=== PATIENT | female | born 1980 | race Caucasian/White ===

== ENCOUNTER → 2016-11-05 | Outpatient (CLI) | payer MEDICARE, OTHER ==
--- NOTE | 2016-11-05 18:14 | MR ---
EXAMINATION TYPE: MR cervical spine wo con DATE OF EXAM: 11/05/2016 5:56 PM COMPARISON: 02/14/2015 HISTORY: Neck pain, hx of trauma TECHNIQUE: Multiplanar, multisequence images of the cervical spine were acquired. C2-C3: No evidence for degenerative disc disease. No disc bulge/herniation or protrusion. No Canal stenosis. Foramina are patent bilaterally. C3-C4: No evidence for degenerative disc disease. No disc bulge/herniation or protrusion. No Canal stenosis. Foramina are patent bilaterally. C4-C5: No evidence for degenerative disc disease. No disc bulge/herniation or protrusion. No Canal stenosis. Foramina are patent bilaterally. C5-C6: Degenerative disc disease with a large left paracentral disc herniation resulting in mild ante rior compression of the spinal cord. There may be very mild progression relative to the previous exam with moderate left-sided foraminal encroachment. Uncovertebral joint hypertrophy seen bilaterally wi th mild right foraminal encroachment. C6-C7: No evidence for degenerative disc disease. No disc bulge/herniation or protrusion. No Canal stenosis. Foramina are patent bilaterally. C7-T1: No evidence for degenerative disc disease. No disc bulge/herniation or protrusion. No Canal stenosis. Foramina are patent bilaterally. Cervical segments are intact. There is loss of the normal cervical lordosis. There is normal alignmen t. Cervical spinal cord is of normal signal. Craniovertebral junction relationships are within norm al limits. IMPRESSION: C5-C6: Degenerative disc disease with a large left paracentral disc herniation resulting in mild ante rior compression of the spinal cord. There may be very mild progression relative to the previous exam with moderate left-sided foraminal encroachment.
== END | disposition home or self-care (01) ==
LOC: RADMRIMAIN 17:03
PROVIDERS: ATTEND Nurse Practitioner Acute Care
DX: M50.022 Cervical disc disorder at C5-C6 level with myelopathy (principal); M50.222 Other cervical disc displacement at C5-C6 level; M50.322 Other cervical disc degeneration at C5-C6 level; Z88.2 Allergy status to sulfonamides
CPT/HCPCS: 72141

== ENCOUNTER → 2016-11-06 | Outpatient (CLI) | payer MEDICARE, OTHER ==
--- NOTE | 2016-11-07 09:38 | MR ---
MR thoracic spine HISTORY: Thoracic spine pain Multiplanar multisequence imaging obtained through the thoracic spine No comparisons Thoracic vertebral bodies show preserved height, alignment, and bone marrow signal. Thoracic cord sig nal is maintained. No significant central canal stenosis or foraminal encroachment. There is a slight spinal curvature. T7-8 shows a right posterior paracentral spur possibly contacting the thoracic cord. T6-7 shows a left posterior paracentral disc bulge causing anterolateral mass effect on the thecal sa c. There is no significant spinal stenosis, foraminal encroachment, and there is multilevel mild facet a rthropathy especially at the lower thoracic spine. IMPRESSION: Degenerative disc disease and facet arthropathy as described. Additional findings above
== END ==
LOC: RADMRIMAIN 17:23
PROVIDERS: ATTEND Nurse Practitioner Acute Care
DX: M51.34 Other intervertebral disc degeneration, thoracic region (principal); M46.84 Other specified inflammatory spondylopathies, thoracic region; I63.9 Cerebral infarction, unspecified; M54.2 Cervicalgia; M54.5 Low back pain
CPT/HCPCS: 72146

== ENCOUNTER → 2016-11-07 | Outpatient (CLI) | payer MEDICARE, OTHER ==
--- NOTE | 2016-11-07 21:16 | MR ---
EXAMINATION TYPE: MR lumbar spine wo con DATE OF EXAM: 11/07/2016 5:57 PM COMPARISON: NONE HISTORY: Patient having low back pain TECHNIQUE: Multiplanar, multisequence imaging of the lumbar spine is performed without IV contrast. FINDINGS: Sagittal images of the lumbar spine show vertebral body heights and alignment to appear sat isfactory. The intervertebral discs demonstrate normal heights and hydration. No significant posterio r disc herniations are seen on sagittal images. The conus medullaris is normal in position and signa l ending at mid L1 vertebral body level. The bone marrow signal intensity is within normal limits. N o significant spurring is seen. Axial images show the T12-L1, L1-L2, and L2-L3 levels all to appear within normal limits. Axial images at the L3-L4 through the L5-S1 levels show mild facet degenerative changes bilaterally. Spinal canal is preserved and bilateral neural foramina are patent. - IMPRESSION: Some multilevel mild facet arthropathy in the mid to lower lumbar spine otherwise unremar kable study.
== END | disposition home or self-care (01) ==
LOC: RADMRIMAIN 17:20
PROVIDERS: ATTEND Nurse Practitioner Acute Care
DX: M46.96 Unspecified inflammatory spondylopathy, lumbar region (principal)
CPT/HCPCS: 72148

== ENCOUNTER → 2016-11-15 | Outpatient (CLI) | payer MEDICARE, OTHER ==
--- NOTE | 2016-11-15 21:21 | MR ---
EXAMINATION TYPE: MR brain wo con DATE OF EXAM: 11/15/2016 8:33 PM COMPARISON: 11/23/2015 HISTORY: Dizziness, hx stroke 2 years ago T1-weighted sagittal, T2, FLAIR, and diffusion axial, and T2 coronal coronal views of the brain are s ubmitted. There is no evidence of acute ischemia. The ventricles, basal cisterns, and sulci overlying the conv exities are consistent with the patient's age. There is no mass effect. Persistent abnormal increased T2 signal involving the left occipital lobe, left parietal and left fro ntal lobes. Compensatory enlargement of the left lateral ventricle. No subdural collections. Craniocervical junction maintained. Sella turcica has a normal appearance. No cerebellopontine angle mass. IMPRESSION: 1. No acute intracranial process. 2. Evidence of multiple areas of remote ischemic infarction.
== END | disposition home or self-care (01) ==
LOC: RADMRIMAIN 19:52
PROVIDERS: ATTEND Nurse Practitioner Acute Care
DX: I63.9 Cerebral infarction, unspecified (principal); M54.2 Cervicalgia; M54.5 Low back pain; M54.6 Pain in thoracic spine
CPT/HCPCS: 70551

== ENCOUNTER 2020-04-22 14:41 | Emergency (ER) | payer MEDICARE, OTHER ==
[2020-04-22 14:48] VITALS: RESP 18; TEMP 98
[2020-04-22] MEDS ORDERED: SODIUM CHLORIDE 0.9% 500 ML 500 ML IV STA (15:22)
[2020-04-22 15:33] LABS: Basophils # (A) 0.1 k/uL (0-0.2); Basophils % (A) 1 %; Eosinophils # (A) 0.8 k/uL (0-0.7); Eosinophils % (A) 9 %; HCT 43.6 % (34.0-46.0); Lymphocytes # (A) 1.2 k/uL (1.0-4.8); Lymphocytes % (A) 14 %; MCH 27.4 pg (25.0-35.0); MCHC 32.1 g/dL (31.0-37.0); MCV 85.4 fL (80.0-100.0); Mean Platelet Volume 7.8; Monocytes # (A) 0.3 k/uL (0-1.0); Monocytes % (A) 3 %; Neutrophils # (A) 5.7 k/uL (1.3-7.7); Neutrophils % (A) 70 %; Platelet Count 257 k/uL (150-450); RBC 5.11 m/uL (3.80-5.40); RDW 14.7 % (11.5-15.5); WBC 8.2 k/uL (3.8-10.6)
[2020-04-22 15:41] LABS: Partial Thromboplastin Time 22.3 sec (22.0-30.0); Prothrombin Time 10.6 sec (9.0-12.0)
[2020-04-22 15:46] LABS: ALT 15 U/L (4-34); AST 14 U/L (14-36); African American GFR (CKD) >90 (>60 ml/min/1.73 sqM); Albumin 3.6 g/dL (3.5-5.0); Alkaline Phosphatase 82 U/L (38-126); Anion Gap 4 mmol/L; Blood Urea Nitrogen 9 mg/dL (7-17); Calcium 9.1 mg/dL (8.4-10.2); Carbon Dioxide 23 mmol/L (22-30); Chloride 105 mmol/L (98-107); Creatine Kinase 36 U/L (30-135); Glucose 100 mg/dL (74-99); Non-African American GFR(CKD) >90 (>60 ml/min/1.73 sqM); Potassium 4.2 mmol/L (3.5-5.1); Sodium 132 mmol/L (137-145); Total Bilirubin 0.5 mg/dL (0.2-1.3); Total Protein 5.9 g/dL (6.3-8.2)
--- NOTE | 2020-04-22 15:51 | CT ---
EXAMINATION TYPE: CT brain wo con DATE OF EXAM: 04/22/2020 COMPARISON: 08/22/2014 HISTORY: Left arm numbness, AMS CT DLP: 1102.8 mGycm Automated exposure control for dose reduction was used. There is large area of hypodensity involving the left cerebral hemisphere in the left parietal and le ft posterior frontal and left temporal lobes. There is no mass effect nor midline shift. There is david e enlargement of the left lateral ventricle. There is no evidence of intracranial hemorrhage. Cerebel lum is intact. IMPRESSION: Old large left hemisphere infarct in the middle cerebral artery distribution not changed compared to old CT scan. No acute intracranial abnormality.
--- NOTE | 2020-04-22 16:03 | CT ---
EXAMINATION TYPE: CT angio head neck DATE OF EXAM: 04/22/2020 COMPARISON: None HISTORY: Left arm numbness, AMS CT DLP: 614.1 mGycm Automated exposure control for dose reduction was used. CONTRAST: Performed with IV Contrast, patient injected with 65 mL of Isovue 370. There are 3-D post processed images. There is normal branching pattern of the great vessels on the aortic arch. There is bilateral arteria l flow in the subclavian arteries. There is arterial flow in the common internal and external carotid arteries bilaterally. There is wide patency of the carotid artery bifurcations. There is bilateral a rterial flow in the vertebral arteries. There is arterial flow in the vertebrobasilar artery system. There is arterial flow in the anterior middle and posterior cerebral arteries bilaterally. I see no e vidence of intracranial aneurysm or neovascularity. There is no mass effect. There is normal contrast opacification of the venous sinuses. I see no evidence of intracranial arterial hemodynamic stenosis . There is evidence of old large left hemisphere infarct in the left middle cerebral artery distribut ion. No significant angiographic abnormality seen in this area. IMPRESSION: Negative CT angiogram of the neck. Negative CT angiogram of the brain.
--- NOTE | 2020-04-22 16:06 | ED ---
Neuro HPI - General Chief Complaint: Neuro Symptoms/Deficit Stated Complaint: poss stroke Source: patient Mode of arrival: ambulatory Limitations: no limitations - History of Present Illness Is the patient presenting with stroke symptoms?: Yes Last Known Well Date: 04/21/20 Initial Comments: Patient is a 39-year-old female with past history of asthma, hemorrhagic CVA, multiple TIA, diabetes who presents emergency room with reported left-sided weakness. 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 Reports that she regained the strength in her extremities and had significant improvement in her speech however continues to have a level of expressive aphasia. Daughter is at bedside and provides the history. Reports that yesterday afternoon the patient began having worsening weakness and numbness in her left upper extremity which was always her stronger side. Also reports that she seems a little bit more confused. She went into [facility] this morning for the symptoms and was told that she had low potassium levels. They gave her potassium and she was discharged. Patient is concerned that she is having a TIA and therefore came into our emergency department. Denies any headaches or visual changes. No fevers or chills. Also admits to tingling in her left lower extremity. No recent head trauma. Patient takes an aspirin daily. No other alleviating, precipitating or modifying factors - Related Data Home Medications: Home Medications Medication Instructions Recorded Confirmed Nicotine 14Mg/24Hr Patch [Habitrol] 1 patch TRANSDERM DAILY 01/03/16 01/04/16 ALPRAZolam 0.25 mg PO TID PRN 01/04/16 01/04/16 Dextroamphetamine/Amphetamine 5 mg PO BID 01/04/16 01/04/16 [Adderall] Hydrocodone/Acetaminophen [[place] 1 tab PO TID 01/04/16 01/04/16 10-325] QUEtiapine [SEROquel] 50 mg PO AC-SUPPER 01/04/16 01/04/16 Previous Rx's Medication Instructions Recorded QUEtiapine [SEROquel] 300 mg PO HS #60 tab 02/16/14 Aspirin EC [Ecotrin] 325 mg PO DAILY #30 tablet. 08/26/14 Atorvastatin [Lipitor] 20 mg PO HS #30 tab 01/08/16 HYDROcodone/APAP 10-325MG [[place] 1 each PO Q8H PRN #30 tab 01/08/16 10-325] Loratadine [Claritin] 10 mg PO DAILY #30 tab 01/08/16 QUEtiapine XR [SEROquel XR] 150 mg PO DAILY@1700 #30 tab.er.24h 01/08/16 Topiramate [Topamax] 75 mg PO HS #90 tab 01/08/16 lamoTRIgine [LaMICtal] 100 mg PO DAILY #30 tab 01/08/16 lamoTRIgine [LaMICtal] 200 mg PO HS #30 tab 01/08/16 traZODone HCL [Desyrel] 50 mg PO HS #30 tab 01/08/16 Allergies/Adverse Reactions: Allergies Allergy/AdvReac Type Severity Reaction Status Date / Time oxycodone HCl [From Percocet] Allergy Itching Verified 04/22/20 14:43 Sulfa (Sulfonamide Allergy Itching Verified 04/22/20 14:43 Antibiotics) Review of Systems ROS Statement: Those systems with pertinent positive or pertinent negative responses have been documented in the HPI. ROS Other: All systems not noted in ROS Statement are negative. General Exam Limitations: no limitations General appearance: alert, in no apparent distress Head exam: Present: atraumatic, normocephalic, normal inspection Eye exam: Present: normal appearance, PERRL, EOMI. Absent: scleral icterus, conjunctival injection, periorbital swelling ENT exam: Present: normal exam, mucous membranes moist Neck exam: Present: normal inspection. Absent: tenderness, meningismus, lymphadenopathy Respiratory exam: Present: normal lung sounds bilaterally. Absent: respiratory distress, wheezes, rales, rhonchi, stridor Cardiovascular Exam: Present: regular rate, normal rhythm, normal heart sounds. Absent: systolic murmur, diastolic murmur, rubs, gallop, clicks GI/Abdominal exam: Present: soft, normal bowel sounds. 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 Patient is able to hold her hands above her head without difficulty. Lifts arms appropriately for blood pressure cuff. ). Absent: tenderness, pedal edema, joint swelling, calf tenderness Back exam: Present: normal inspection Neurological exam: Present: alert, oriented X3, CN II-XII intact Psychiatric exam: Present: anxious Skin exam: Present: warm, dry, intact, normal color. Absent: rash Stroke MDM - Lab Data Result diagrams: 04/22/20 15:25 04/22/20 14:54 Lab Results 04/22/20 04/22/20 04/22/20 Range/Units 14:54 14:54 15:25 WBC 8.2 (3.8-10.6) k/uL RBC 5.11 (3.80-5.40) m/uL Hgb 14.0 (11.4-16.0) gm/dL Hct 43.6 (34.0-46.0) % MCV 85.4 (80.0-100.0) fL MCH 27.4 (25.0-35.0) pg MCHC 32.1 (31.0-37.0) g/dL RDW 14.7 (11.5-15.5) % Plt Count 257 (150-450) k/uL Neutrophils % 70 % Lymphocytes % 14 % Monocytes % 3 % Eosinophils % 9 % Basophils % 1 % Neutrophils # 5.7 (1.3-7.7) k/uL Lymphocytes # 1.2 (1.0-4.8) k/uL Monocytes # 0.3 (0-1.0) k/uL Eosinophils # 0.8 H (0-0.7) k/uL Basophils # 0.1 (0-0.2) k/uL PT (9.0-12.0) sec INR (<1.2) APTT (22.0-30.0) sec Sodium 132 L (137-145) mmol/L Potassium 4.2 (3.5-5.1) mmol/L Chloride 105 (98-107) mmol/L Carbon Dioxide 23 (22-30) mmol/L Anion Gap 4 mmol/L BUN 9 (7-17) mg/dL Creatinine 0.78 (0.52-1.04) mg/dL Est GFR (CKD-EPI)AfAm >90 (>60 ml/min/1.73 sqM) Est GFR (CKD-EPI)NonAf >90 (>60 ml/min/1.73 sqM) Glucose 100 H (74-99) mg/dL Calcium 9.1 (8.4-10.2) mg/dL Total Bilirubin 0.5 (0.2-1.3) mg/dL AST 14 (14-36) U/L ALT 15 (4-34) U/L Alkaline Phosphatase 82 (38-126) U/L Creatine Kinase 36 (30-135) U/L Troponin I <0.012 (0.000-0.034) ng/mL Total Protein 5.9 L (6.3-8.2) g/dL Albumin 3.6 (3.5-5.0) g/dL Urine Color Urine Appearance (Clear) Urine pH (5.0-8.0) Ur Specific Oneco (1.001-1.035) Urine Protein (Negative) Urine Glucose (UA) (Negative) Urine Ketones (Negative) Urine Blood (Negative) Urine Nitrite (Negative) Urine Bilirubin (Negative) Urine Urobilinogen (<2.0) mg/dL Ur Leukocyte Esterase (Negative) Urine HCG, Qual (Not Detectd) Urine Opiates Screen (NotDetected) Ur Oxycodone Screen (NotDetected) Urine Methadone Screen (NotDetected) Ur Propoxyphene Screen (NotDetected) Ur Barbiturates Screen (NotDetected) U Tricyclic Antidepress (NotDetected) Ur Phencyclidine Scrn (NotDetected) Ur Amphetamines Screen (NotDetected) U Methamphetamines Scrn (NotDetected) U Benzodiazepines Scrn (NotDetected) Urine Cocaine Screen (NotDetected) U Marijuana (THC) Screen (NotDetected) 04/22/20 04/22/20 04/22/20 Range/Units 15:25 15:25 15:25 WBC (3.8-10.6) k/uL RBC (3.80-5.40) m/uL Hgb (11.4-16.0) gm/dL Hct (34.0-46.0) % MCV (80.0-100.0) fL MCH (25.0-35.0) pg MCHC (31.0-37.0) g/dL RDW (11.5-15.5) % Plt Count (150-450) k/uL Neutrophils % % Lymphocytes % % Monocytes % % Eosinophils % % Basophils % % Neutrophils # (1.3-7.7) k/uL Lymphocytes # (1.0-4.8) k/uL Monocytes # (0-1.0) k/uL Eosinophils # (0-0.7) k/uL Basophils # (0-0.2) k/uL PT 10.6 (9.0-12.0) sec INR 1.0 (<1.2) APTT 22.3 (22.0-30.0) sec Sodium (137-145) mmol/L Potassium (3.5-5.1) mmol/L Chloride (98-107) mmol/L Carbon Dioxide (22-30) mmol/L Anion Gap mmol/L BUN (7-17) mg/dL Creatinine (0.52-1.04) mg/dL Est GFR (CKD-EPI)AfAm (>60 ml/min/1.73 sqM) Est GFR (CKD-EPI)NonAf (>60 ml/min/1.73 sqM) Glucose (74-99) mg/dL Calcium (8.4-10.2) mg/dL Total Bilirubin (0.2-1.3) mg/dL AST (14-36) U/L ALT (4-34) U/L Alkaline Phosphatase (38-126) U/L Creatine Kinase (30-135) U/L Troponin I (0.000-0.034) ng/mL Total Protein (6.3-8.2) g/dL Albumin (3.5-5.0) g/dL Urine Color Yellow Urine Appearance Clear (Clear) Urine pH 5.5 (5.0-8.0) Ur Specific Oneco 1.045 H (1.001-1.035) Urine Protein Negative (Negative) Urine Glucose (UA) Negative (Negative) Urine Ketones Negative (Negative) Urine Blood Negative (Negative) Urine Nitrite Negative (Negative) Urine Bilirubin Negative (Negative) Urine Urobilinogen <2.0 (<2.0) mg/dL Ur Leukocyte Esterase Negative (Negative) Urine HCG, Qual Not Detected (Not Detectd) Urine Opiates Screen Detected H (NotDetected) Ur Oxycodone Screen Not Detected (NotDetected) Urine Methadone Screen Not Detected (NotDetected) Ur Propoxyphene Screen Not Detected (NotDetected) Ur Barbiturates Screen Not Detected (NotDetected) U Tricyclic Antidepress Not Detected (NotDetected) Ur Phencyclidine Scrn Not Detected (NotDetected) Ur Amphetamines Screen Detected H (NotDetected) U Methamphetamines Scrn Detected H (NotDetected) U Benzodiazepines Scrn Not Detected (NotDetected) Urine Cocaine Screen Not Detected (NotDetected) U Marijuana (THC) Screen Detected H (NotDetected) - Medical Decision Making Upon arrival the patient is placed into room 8. Patient is greater than 24 hours from onset of symptoms. NIH stroke scale is performed and is 0. Laboratory studies were conducted. The patient did go for CT of her head as well as CT angiography. Laboratory studies are remarkable for a sodium of 132. Urine drug screen is positive for opiates, amphetamines, methamphetamines and THC. CT of the patient's brain demonstrates old large left hemisphere infarct in the middle cerebral artery distribution which is unchanged. Angiography of the brain demonstrates a negative CT angiogram of the head and neck. Chest x- ray demonstrates no active cardio pulmonary disease. I discussed diagnosis, differential treatment options. As the patient does report to weakness/tingling in her left extremity with previous history of CVA I did recommend observation with evaluation by a neurologist. No neurologist is available on staff at her facility and therefore the patient will be transferred to a facility of her choosing. Patient does choose [facility]. Discussed case with Dr. De La Paz who accepted transfer. Patient will be transferred in stable condition 04/22/20 16:12 EKG demonstrates a sinus tachycardia with a ventricular rate of 101. GA interval 132. QRS 86. QTC of 474. No acute ST segment elevations or depressions concerning for ischemic changes. Past Medical History Past Medical History: Asthma, CVA/TIA, Diabetes Mellitus Additional Past Medical History / Comment(s): CHRONIC PAIN NECK AND BACK, hypoglycemia, borderline DM History of Any Multi-Drug Resistant Organisms: None Reported Past Surgical History: Section, Tonsillectomy Past Anesthesia/Blood Transfusion Reactions: No Reported Reaction Past Psychological History: ADD/ADHD, Anxiety, Bipolar, Depression Past Alcohol Use History: Occasional, Rare Past Drug Use History: None Reported Course Vital Signs 04/22/20 04/22/20 14:43 17:33 Temperature 98 F 98 F Pulse Rate 95 95 Respiratory 18 18 Rate Blood Pressure 114/81 134/80 O2 Sat by Pulse 98 100 Oximetry Disposition Clinical Impression: Transient cerebral ischemia, Cerebrovascular accident (CVA) Disposition: OTHER INSTITUTION NOT DEFINED Condition: Stable Is patient prescribed a controlled substance at d/c from ED?: No Referrals: None,Stated [Primary Care Provider] - 1-2 days Time of Disposition: 17:40 - Out of Hospital Transfer - Req. Specs Out of Hospital Transfer - Requested Specifics: Other Emergency Center ([facility])
--- NOTE | 2020-04-22 16:43 | XR ---
EXAMINATION TYPE: XR chest 2V DATE OF EXAM: 04/22/2020 COMPARISON: 05/10/2014 HISTORY: Altered mental status TECHNIQUE: FINDINGS: Heart and mediastinum are normal. Lungs are clear. Diaphragm is normal. There are chest yi ds. Bony thorax is intact. IMPRESSION: No active cardiopulmonary disease. Normal heart. No change.
[2020-04-22 16:44] LABS: Appearance,Urine Clear (Clear); Bilirubin,Urine Negative (Negative); Blood,Urine Negative (Negative); Color,Urine Yellow; Glucose,Urine (UA) Negative (Negative); Ketones,Urine Negative (Negative); Leukocyte Esterase,Urine Negative (Negative); Nitrite,Urine Negative (Negative); PH, Urine 5.5 (5.0-8.0); Protein,Urine Negative (Negative); Specific Gravity,Urine 1.045 (1.001-1.035); Urobilinogen,Urine <2.0 mg/dL (<2.0)
[2020-04-22 17:00] LABS: Amphetamine Screen,Urine Detected (NotDetected); Cocaine Screen,Urine Not Detected (NotDetected); Opiate Screen,Urine Detected (NotDetected); Phencyclidine Screen,Urine Not Detected (NotDetected); Urn Cannabinoid Scrn Detected (NotDetected)
[2020-04-22 17:01] LABS: Barbiturate Screen,Urine Not Detected (NotDetected); Benzodiazepines Screen,Urine Not Detected (NotDetected); Methadone Screen, Urine Not Detected (NotDetected); Oxycodone Screen, Urine Not Detected (NotDetected); Tricyclic Antidepressant,Urine Not Detected (NotDetected)
[2020-04-22] MEDS ORDERED: MORPHINE SULFATE 2 MG/ML SYRINGE IVP STA ×2 (17:31→18:29)
[2020-04-22] MEDS ORDERED: ASPIRIN 325 MG TAB PO STA (17:55)
[2020-04-22 18:38] VITALS: BP 123/70; PULSE 107
== END 2020-04-22 19:05 | disposition other institution (70) ==
LOC: EC 14:41 → EEVIPCON 14:41 → EC 19:05
DX: G45.9 Transient cerebral ischemic attack, unspecified (principal); I63.9 Cerebral infarction, unspecified; R47.01 Aphasia; R53.1 Weakness; R20.0 Anesthesia of skin; R29.700 NIHSS score 0; R00.0 Tachycardia, unspecified; F41.9 Anxiety disorder, unspecified; F31.9 Bipolar disorder, unspecified; F90.9 Attention-deficit hyperactivity disorder, unspecified type; G89.29 Other chronic pain; M54.2 Cervicalgia; M54.9 Dorsalgia, unspecified; R73.03 Prediabetes; Z79.891 Long term (current) use of opiate analgesic; Z79.899 Other long term (current) drug therapy; Z88.5 Allergy status to narcotic agent; Z88.2 Allergy status to sulfonamides; Z86.73 Personal history of transient ischemic attack (TIA), and cerebral infarction without residual deficits
CPT/HCPCS: 36415; 93005; 80053; 82550; 84484; 85025; 85610; 85730; 81003; 81025; 80306; 71046; 70496; 70450; 70498; 99285; 96374; 96376; 96361; J2270; Q9967; 96375

== ENCOUNTER 2020-08-05 12:49 | Emergency (ER) | payer MEDICARE, OTHER ==
[2020-08-05 12:59] VITALS: RESP 18; TEMP 98.4
[2020-08-05] MEDS ORDERED: MORPHINE SULFATE 4 MG/ML SYRINGE IVP STA (13:34)
[2020-08-05 13:49] LABS: Basophils # (A) 0.1 k/uL (0-0.2); Basophils % (A) 1 %; Eosinophils # (A) 0.3 k/uL (0-0.7); Eosinophils % (A) 4 %; HCT 43.3 % (34.0-46.0); HGB 13.8 gm/dL (11.4-16.0); Lymphocytes # (A) 2.4 k/uL (1.0-4.8); Lymphocytes % (A) 31 %; MCH 26.6 pg (25.0-35.0); MCHC 31.8 g/dL (31.0-37.0); MCV 83.8 fL (80.0-100.0); Mean Platelet Volume 7.2; Monocytes # (A) 0.4 k/uL (0-1.0); Monocytes % (A) 5 %; Neutrophils # (A) 4.3 k/uL (1.3-7.7); Neutrophils % (A) 57 %; Platelet Count 327 k/uL (150-450); RBC 5.17 m/uL (3.80-5.40); RDW 14.6 % (11.5-15.5); WBC 7.5 k/uL (3.8-10.6)
[2020-08-05 14:02] LABS: ALT 12 U/L (4-34); AST 14 U/L (14-36); African American GFR (CKD) >90 (>60 ml/min/1.73 sqM); Alkaline Phosphatase 88 U/L (38-126); Anion Gap 4 mmol/L; Blood Urea Nitrogen 15 mg/dL (7-17); C Reactive Protein 9.1 mg/L (<10.0); Calcium 9.7 mg/dL (8.4-10.2); Carbon Dioxide 28 mmol/L (22-30); Chloride 107 mmol/L (98-107); Glucose 95 mg/dL (74-99); Non-African American GFR(CKD) >90 (>60 ml/min/1.73 sqM); Potassium 4.9 mmol/L (3.5-5.1); Sodium 139 mmol/L (137-145); Total Bilirubin 0.2 mg/dL (0.2-1.3); Total Protein 6.7 g/dL (6.3-8.2)
[2020-08-05 14:06] LABS: INR 0.9 (<1.2); Partial Thromboplastin Time 22.1 sec (22.0-30.0); Prothrombin Time 9.6 sec (9.0-12.0)
[2020-08-05 14:30] LABS: Erythrocyte Sedimentation Rate 7 mm/hr (0-20)
--- NOTE | 2020-08-05 15:12 | CT ---
EXAMINATION TYPE: CT brain cspine wo con DATE OF EXAM: 08/05/2020 COMPARISON: CT brain 04/22/2020 HISTORY: Headache/neck pain CT DLP: 1645 mGycm Automated exposure control for dose reduction was used. There is large area of hypodensity involving the left temporal occipital and parietal lobes with old ischemic infarct. There is no mass effect nor midline shift. There is no sign of intracranial hemorrh age. There is enlargement of the left lateral ventricle. The calvarium is intact. Cervical vertebra show fairly normal alignment. There is old anterior fusion surgery from C5 C7. Ster nal elements are intact. Prevertebral soft tissues are intact. IMPRESSION: Old large left hemisphere ischemic infarct unchanged compared to old exam. Previous cervical spine fusion surgery. No fracture seen.
[2020-08-05] MEDS ORDERED: HYDROmorphone 1 MG/ML 1 ML SYRINGE IVP STA (16:05)
--- NOTE | 2020-08-05 16:18 | ED ---
Headache HPI - General Chief Complaint: Headache Stated Complaint: headache/neck pain Time Seen by Provider: 08/05/20 12:50 Mode of arrival: ambulatory Limitations: no limitations - History of Present Illness Initial Comments: Patient is a 39-year-old female with past medical history of ruptured brain aneurysm, hemorrhagic CVA who presents emergency room and reported neck pain. Patient states that she was seen in April for weakness on the left side of her body. There was concern for stroke at that time and therefore she was sent to [facility] for further evaluation. Throughout her stay there, the patient had impingement in her neck and she required surgery. Patient is unsure of her surgeon. States that she had a zoom follow up appointment with her surgeon but has yet to see him in office because "his office is too far". She then reports that she sustained a fall last month for which she was seen at [facility] and had a CT performed. Reports that her hardware was intact therefore she was discharged home. Patient presents as she is having continued chronic neck pain and continue to weakness in her left side. States that she was told by her surgeon that is to take up to a year in order to get some of this sensation back. She feels as if her neck is swollen. She does not have any medications at home to take for pain. She denies any fevers or chills. No nausea or vomiting. Admits to headache without visual changes. No thoracic or lumbar back pain. No saddle anesthesia. No bowel or bladder incontinence. No other alleviating, precipitating or modifying factors - Related Data Home Medications Medication Instructions Recorded Confirmed Bromocriptine Mesylate [Parlodel] 15 mg PO TID 08/05/20 08/05/20 Cyclobenzaprine [Flexeril] 10 mg PO BID PRN 08/05/20 08/05/20 FLUoxetine HCL 80 mg PO DAILY 08/05/20 08/05/20 QUEtiapine [SEROquel] 100 mg PO HS 08/05/20 08/05/20 lamoTRIgine [LaMICtal] 200 mg PO DAILY 08/05/20 08/05/20 traZODone HCL 100 mg PO HS 08/05/20 08/05/20 Previous Rx's Medication Instructions Recorded Aspirin EC [Ecotrin] 325 mg PO DAILY #30 tablet. 08/26/14 Cyclobenzaprine [Flexeril] 10 mg PO BID #10 tab 08/05/20 HYDROcodone/APAP 10-325MG [Axis 1 tab PO Q4H PRN #18 tab 08/05/20 10-325] Allergies Allergy/AdvReac Type Severity Reaction Status Date / Time Sulfa (Sulfonamide Allergy Itching Verified 08/05/20 13:44 Antibiotics) Review of Systems ROS Statement: Those systems with pertinent positive or pertinent negative responses have been documented in the HPI. ROS Other: All systems not noted in ROS Statement are negative. Past Medical History Past Medical History: Asthma, CVA/TIA, Diabetes Mellitus Additional Past Medical History / Comment(s): brain aneurysm, CHRONIC PAIN NECK AND BACK, hypoglycemia, borderline DM, difficulty speaking History of Any Multi-Drug Resistant Organisms: None Reported Past Surgical History: Section, Cholecystectomy, Tonsillectomy Additional Past Surgical History / Comment(s): neck surgery Past Anesthesia/Blood Transfusion Reactions: No Reported Reaction Past Psychological History: ADD/ADHD, Anxiety, Bipolar, Depression Smoking Status: Current every day smoker Past Alcohol Use History: Occasional, Rare Past Drug Use History: None Reported General Exam Limitations: no limitations General appearance: alert, in no apparent distress Head exam: Present: atraumatic, normocephalic, normal inspection Eye exam: Present: normal appearance, PERRL, EOMI. Absent: scleral icterus, co njunctival injection, periorbital swelling ENT exam: Present: normal exam, mucous membranes moist Neck exam: Present: tenderness. Absent: meningismus, lymphadenopathy Respiratory exam: Present: normal lung sounds bilaterally. Absent: respiratory distress, wheezes, rales, rhonchi, stridor Cardiovascular Exam: Present: regular rate, normal rhythm, normal heart sounds. Absent: systolic murmur, diastolic murmur, rubs, gallop, clicks GI/Abdominal exam: Present: soft, normal bowel sounds. Absent: distended, tenderness, guarding, rebound, rigid Extremities exam: Present: normal inspection, full ROM, normal capillary refill, other (equal host/hostess head strength b/l upper extremities). Absent: tenderness, pedal edema, joint swelling, calf tenderness Back exam: Present: normal inspection Neurological exam: Present: alert, oriented X3, CN II-XII intact Psychiatric exam: Present: normal affect, normal mood Skin exam: Present: warm, dry, intact, normal color. Absent: rash Course Vital Signs 08/05/20 08/05/20 08/05/20 12:50 15:13 16:32 Temperature 98.4 F 98.4 F Pulse Rate 97 76 93 Respiratory 18 18 18 Rate Blood Pressure 129/81 132/82 132/83 O2 Sat by Pulse 100 99 98 Oximetry Medical Decision Making - Medical Decision Making Upon arrival patient was placed into room 14. A thorough history and physical exam was performed. The patient does have some weakness to the left upper extremity for which the patient states constant. Peripheral IV is established. Patient is requesting pain medications for which she was provided. Laboratory studies were conducted and the patient went for CT of her head and cervical spine. Results of the every studies and imaging are discussed with the patient's surgeon. He states that the patient needs an MRI on an outpatient basis and to follow up with him in office. I did provide the patient a course of pain medications. She is also requesting Flexeril for which I informed her t hat she is to not take the pain medications and muscle relaxer the same time. The patient states she understood this. She is to call her neurologist to order the MRI and the follow-up with her neurosurgeon in office. She is given his follow-up information. Instructed to call Friday and make an appointment. She was also requesting refills of her electrodes for her tens stimulator. I do attempt rate a prescription however he states that the patient may need to receive refills from her neurosurgeon. She understood this. She is given written and verbal discharge instructions and discharged home in stable condition - Lab Data Result diagrams: 08/05/20 13:36 08/05/20 13:36 Lab Results 08/05/20 08/05/20 08/05/20 Range/Units 13:36 13:36 13:36 WBC 7.5 (3.8-10.6) k/uL RBC 5.17 (3.80-5.40) m/uL Hgb 13.8 (11.4-16.0) gm/dL Hct 43.3 (34.0-46.0) % MCV 83.8 (80.0-100.0) fL MCH 26.6 (25.0-35.0) pg MCHC 31.8 (31.0-37.0) g/dL RDW 14.6 (11.5-15.5) % Plt Count 327 (150-450) k/uL MPV 7.2 Neutrophils % 57 % Lymphocytes % 31 % Monocytes % 5 % Eosinophils % 4 % Basophils % 1 % Neutrophils # 4.3 (1.3-7.7) k/uL Lymphocytes # 2.4 (1.0-4.8) k/uL Monocytes # 0.4 (0-1.0) k/uL Eosinophils # 0.3 (0-0.7) k/uL Basophils # 0.1 (0-0.2) k/uL ESR 7 (0-20) mm/hr PT 9.6 (9.0-12.0) sec INR 0.9 (<1.2) APTT 22.1 (22.0-30.0) sec Sodium 139 (137-145) mmol/L Potassium 4.9 (3.5-5.1) mmol/L Chloride 107 (98-107) mmol/L Carbon Dioxide 28 (22-30) mmol/L Anion Gap 4 mmol/L BUN 15 (7-17) mg/dL Creatinine 0.73 (0.52-1.04) mg/dL Est GFR (CKD-EPI)AfAm >90 (>60 ml/min/1.73 sqM) Est GFR (CKD-EPI)NonAf >90 (>60 ml/min/1.73 sqM) Glucose 95 (74-99) mg/dL Plasma Lactic Acid Nic (0.7-2.0) mmol/L Calcium 9.7 (8.4-10.2) mg/dL Total Bilirubin 0.2 (0.2-1.3) mg/dL AST 14 (14-36) U/L ALT 12 (4-34) U/L Alkaline Phosphatase 88 (38-126) U/L C-Reactive Protein 9.1 (<10.0) mg/L Total Protein 6.7 (6.3-8.2) g/dL Albumin 4.0 (3.5-5.0) g/dL 08/05/20 Range/Units 13:36 WBC (3.8-10.6) k/uL RBC (3.80-5.40) m/uL Hgb (11.4-16.0) gm/dL Hct (34.0-46.0) % MCV (80.0-100.0) fL MCH (25.0-35.0) pg MCHC (31.0-37.0) g/dL RDW (11.5-15.5) % Plt Count (150-450) k/uL MPV Neutrophils % % Lymphocytes % % Monocytes % % Eosinophils % % Basophils % % Neutrophils # (1.3-7.7) k/uL Lymphocytes # (1.0-4.8) k/uL Monocytes # (0-1.0) k/uL Eosinophils # (0-0.7) k/uL Basophils # (0-0.2) k/uL ESR (0-20) mm/hr PT (9.0-12.0) sec INR (<1.2) APTT (22.0-30.0) sec Sodium (137-145) mmol/L Potassium (3.5-5.1) mmol/L Chloride (98-107) mmol/L Carbon Dioxide (22-30) mmol/L Anion Gap mmol/L BUN (7-17) mg/dL Creatinine (0.52-1.04) mg/dL Est GFR (CKD-EPI)AfAm (>60 ml/min/1.73 sqM) Est GFR (CKD-EPI)NonAf (>60 ml/min/1.73 sqM) Glucose (74-99) mg/dL Plasma Lactic Acid Nic 1.5 (0.7-2.0) mmol/L Calcium (8.4-10.2) mg/dL Total Bilirubin (0.2-1.3) mg/dL AST (14-36) U/L ALT (4-34) U/L Alkaline Phosphatase (38-126) U/L C-Reactive Protein (<10.0) mg/L Total Protein (6.3-8.2) g/dL Albumin (3.5-5.0) g/dL Disposition Clinical Impression: Neck pain, H/O spinal fusion Disposition: HOME SELF-CARE Condition: Stable Instructions (If sedation given, give patient instructions): Chronic Neck Pain (DC) Additional Instructions: Call your neurologist to get an MRI of your neck setup as soon as possible. The results need to be sent to your surgeon, Dr. Zechariah Zheng. Dr. Zheng wants to see you in office so call to make an appointment on Friday. Take your prescription for your electrodes to a medical supply store to obtain. DO not t carmen the Flexeril and Axis together. Return to the ED for any new or worsening symptoms Prescriptions: Cyclobenzaprine [Flexeril] 10 mg PO BID #10 tab HYDROcodone/APAP 10-325MG [Axis 10-325] 1 tab PO Q4H PRN #18 tab PRN Reason: pain Is patient prescribed a controlled substance at d/c from ED?: Yes When asked, does pt state using other controlled substances?: No If prescribed controlled substance>3 days was MAPS reviewed?: Prescribed <3 Days If opioid is for acute pain is fill amount 7 days or less?: Yes If Rx opioid, was Start Talking consent form obtained?: Yes Referrals: Elvia Fierro DO [Primary Care Provider] - 1-2 days Zechariah Cabral DO [REFERRING] - 1-2 days Time of Disposition: 16:26
[2020-08-05 16:34] VITALS: BP 132/83; PULSE 93
== END 2020-08-05 16:35 | disposition home or self-care (01) ==
LOC: EC 12:49
DX: M54.2 Cervicalgia (principal); R53.1 Weakness; F41.9 Anxiety disorder, unspecified; F31.9 Bipolar disorder, unspecified; F17.200 Nicotine dependence, unspecified, uncomplicated; Z90.49 Acquired absence of other specified parts of digestive tract; Z98.1 Arthrodesis status; Z86.73 Personal history of transient ischemic attack (TIA), and cerebral infarction without residual deficits; Z79.899 Other long term (current) drug therapy; Z88.2 Allergy status to sulfonamides
CPT/HCPCS: 99284; 96374; 96375; 36415; 80053; 85652; 83605; 85025; 85610; 85730; 86140; 72125; 70450; J2270; J1170